=== PATIENT | female | born 1955 | race Caucasian/White ===

== ENCOUNTER → 2023-07-27 11:16 | Outpatient (REF) | payer OTHER, SELFPAY | LOC: HWRAD 11:16 | PROVIDERS: ATTENDING PHYSICIAN Family Medicine | DX: Z87.891 Personal history of nicotine dependence (principal) | CPT/HCPCS: 71271 ==

== ENCOUNTER → 2024-04-29 15:43 | Outpatient (REF) | payer OTHER, SELFPAY | LOC: WDC 15:43 | PROVIDERS: ATTENDING PHYSICIAN Family Medicine | DX: Z12.31 Encounter for screening mammogram for malignant neoplasm of breast (principal) | CPT/HCPCS: 77063; 77067 ==

== ENCOUNTER → 2024-07-10 09:59 | Outpatient (REF) | payer OTHER, SELFPAY | LOC: RCS 09:59 | PROVIDERS: ATTENDING PHYSICIAN Physician Assistant Medical | DX: R42 Dizziness and giddiness (principal); E78.2 Mixed hyperlipidemia; I25.10 Atherosclerotic heart disease of native coronary artery without angina pectoris; I10 Essential (primary) hypertension; M54.50 Low back pain, unspecified | CPT/HCPCS: 93017; 72100 ==

== ENCOUNTER → 2024-07-19 11:22 | Outpatient (REF) | payer OTHER, SELFPAY | LOC: HWRCS 11:22 | PROVIDERS: ATTENDING PHYSICIAN Internal Medicine Cardiovascular Disease; FAMILY PHYSICIAN Family Medicine | DX: M54.50 Low back pain, unspecified (principal); R42 Dizziness and giddiness; E78.2 Mixed hyperlipidemia; I25.10 Atherosclerotic heart disease of native coronary artery without angina pectoris; I10 Essential (primary) hypertension | CPT/HCPCS: 78452; 93017; A9500 ==

== ENCOUNTER → 2024-09-11 09:10 | Outpatient (REF) | payer OTHER, SELFPAY | LOC: RAD 09:10 | PROVIDERS: ATTENDING PHYSICIAN Obstetrics & Gynecology; FAMILY PHYSICIAN Family Medicine | DX: Z78.0 Asymptomatic menopausal state (principal) | CPT/HCPCS: 77080 ==

== ENCOUNTER → 2024-10-02 10:03 | Outpatient (REF) | payer OTHER, SELFPAY | LOC: WDC 10:03 | PROVIDERS: ATTENDING PHYSICIAN Advanced Practice Midwife; FAMILY PHYSICIAN Family Medicine | DX: N63.0 Unspecified lump in unspecified breast (principal); N63.24 Unspecified lump in the left breast, lower inner quadrant | CPT/HCPCS: 76642 ==

== ENCOUNTER → 2024-10-28 09:09 | Outpatient (REF) | payer OTHER, SELFPAY | LOC: MRI 3T 09:09 | PROVIDERS: ATTENDING PHYSICIAN Psychiatry & Neurology Neurology; FAMILY PHYSICIAN Family Medicine | DX: R20.0 Anesthesia of skin (principal); R41.3 Other amnesia; R27.0 Ataxia, unspecified | CPT/HCPCS: 70551 ==

== ENCOUNTER → 2024-10-29 11:58 | Outpatient (REF) | payer OTHER, SELFPAY | LOC: HWRAD 11:58 | PROVIDERS: ATTENDING PHYSICIAN Family Medicine | DX: M79.672 Pain in left foot (principal) | CPT/HCPCS: 73630 ==